=== PATIENT | male | born 1940 | race Caucasian/White ===

== ENCOUNTER 2017-09-10 11:08 | Outpatient (RCR) | payer OTHER ==
--- NOTE | 2017-08-31 02:08 | RADIOLOGY IMAGING REPORT ---
FACILITY: [facility] PATIENT NAME: Willie Marquez : 1940 MR: [id number] V: [id number] EXAM DATE: ORDERING PHYSICIAN: SERA JONES TECHNOLOGIST: Location: [facility] [place] Patient: Willie Marquez : 1940 Visit/Account:[id number] Date of Sevice: 08/30/2017 CT Simulation: Indication: Prostate cancer. Technique: CT simulation was performed for radiation therapy planning. Noncontrast images were obtain ed from the level of lower pole of the kidneys through the floor of the pelvis. Comparison: 04/27/2017 Findings: There are postoperative changes at the lower pole of the left kidney. There are no signs of hydronephrosis. There is chronic diverticulosis in the distal colon. There are no signs of diverticulitis. The prostate gland is unremarkable, as visualized. There are no signs of lymph node enlargement. A small diverticulum on the left side of the urinary bladder appears unchanged. There are chronic degenerative changes in the lumbar spine. No osteolytic or osteoblastic skeletal le sions are identified. Impression: See above. Report Dictated By: Robinson Kim MD at 08/30/2017 11:57 PM Report E-Signed By: Robinson Kim MD at 08/31/2017 12:07 AM WSN:[id number]
[~2017-09-10 11:08] MED LIST: ENAL-18 PO; NAPR220C12 PO; PHEN200T32 PO; TAMS0.4C70 PO; TROS20TA4 PO; VERA240C10 PO; [UNRECOGNIZED DRUG - CODE] PO
== END 2017-10-07 13:57 | disposition home or self-care (01) ==
LOC: RAON 11:08
PROVIDERS: ATTEND Radiology Radiation Oncology
DX: Z51.0 Encounter for antineoplastic radiation therapy (principal); C61 Malignant neoplasm of prostate; D30.02 Benign neoplasm of left kidney; J45.909 Unspecified asthma, uncomplicated; M10.9 Gout, unspecified; N28.89 Other specified disorders of kidney and ureter; Z79.82 Long term (current) use of aspirin; Z79.899 Other long term (current) drug therapy; Z87.891 Personal history of nicotine dependence
CPT/HCPCS: 77280; 77290; 77300; 77301; 77336; 77338; 77385; 81001

== ENCOUNTER 2017-10-18 12:53 | Outpatient (RCR) | payer OTHER ==
[2017-10-18] MEDS ORDERED: ENAL-18 PO (13:59)
[2017-10-18] MEDS ORDERED: FLUT15.88 (14:01)
[2017-10-18] MEDS ORDERED: LATA2.5D7 OP (14:02)
[2017-10-18] MEDS ORDERED: LEU30I IM ONLY (14:03)
[2017-10-18] MEDS ORDERED: MOM PO (14:30)
[2017-10-18] MEDS ORDERED: SENN-187 PO (14:30)
[2017-10-18] MEDS ORDERED: ALEN70TA43 PO (14:38)
[2017-10-18] MEDS ORDERED: CHOL10005 PO (14:39)
== END 2017-11-17 11:28 | disposition home or self-care (01) ==
LOC: RAON 12:53
PROVIDERS: ATTEND Radiology Radiation Oncology
DX: C61 Malignant neoplasm of prostate (principal); Z92.3 Personal history of irradiation; Z79.899 Other long term (current) drug therapy; Z87.891 Personal history of nicotine dependence
CPT/HCPCS: 99212

== ENCOUNTER → 2017-12-20 | Outpatient (CLI) | payer OTHER ==
[~2017-12-20] MED LIST changes: +ALEN70TA43 PO; +CHOL10005 PO; +FLUT15.88; +LATA2.5D7 OP; +LEU30I IM ONLY; +MOM PO; +SENN-187 PO
[2017-12-20 11:11] LABS: PLATELET COUNT, AUTOMATED 213 K/uL (150-450)
== END ==
LOC: LAB 10:55
PROVIDERS: ATTEND Nurse Practitioner Family
DX: C61 Malignant neoplasm of prostate (principal)
CPT/HCPCS: 36415; 82040; 82247; 82310; 82374; 82435; 82565; 82947; 84075; 84132; 84153; 84155; 84295; 84450; 84460; 84520; 85025

== ENCOUNTER 2017-12-21 10:51 | Outpatient (RCR) | payer OTHER ==
[2018-01-02] MEDS ORDERED: CYCL10TA29 PO (09:00)
[2018-01-02] MEDS ORDERED: HYDR-4309 PO (09:00)
== END 2018-01-07 09:27 | disposition home or self-care (01) ==
LOC: RAON 10:51
PROVIDERS: ATTEND Radiology Radiation Oncology
DX: Z85.46 Personal history of malignant neoplasm of prostate (principal); Z90.5 Acquired absence of kidney; Z87.898 Personal history of other specified conditions; Z79.899 Other long term (current) drug therapy; Z79.82 Long term (current) use of aspirin; Z87.891 Personal history of nicotine dependence
CPT/HCPCS: 99213

== ENCOUNTER 2018-01-02 08:09 | Emergency (ER) | payer OTHER ==
[2018-01-02 08:12] VITALS: BP 167/82
[2018-01-02] MEDS ORDERED: ORPHENADRINE 60MG/2ML INJ IM ONE (08:35)
[2018-01-02] MEDS ORDERED: DEXAMETHASONE 4 MG TAB PO ONE (08:35)
--- NOTE | 2018-01-02 08:41 | ER Report ---
History and Physical Time Seen By : 08:32 Hx. of Stated Complaint: fell down 3 steps. landed on his arm, elbow went into left ribs. hurts to breath or move fast HPI/ROS CHIEF COMPLAINT: Chest pain after a fall HISTORY OF PRESENT ILLNESS: 77-year-old male who fell yesterday reports to the ER today with moderate left lower lateral chest pain and tenderness. He states yesterday at about noon he was at home walking down the stairs, he remembers being approximately 2 or 3 stairs from the bottom when he fell. He does not know exactly why he fell, he does not believe he tripped. He denies any head injury or headache. He is uncertain about loss of consciousness but states he was definitely not passed out for more than a few seconds. He denies shortness of breath, extremity injury or abdominal pain. He denies feeling faint. REVIEW OF SYSTEMS: Constitutional: No weakness. Eyes: No visual changes or eye pain. ENT: No dental trauma. Respiratory: As above. Cardiac: No palpitations. Gastrointestinal: No abdominal pain, no vomiting. Musculoskeletal: As above. Skin: No lacerations. Neurological: No headache. Allergies: Coded Allergies: latex (Verified Allergy, Mild, 01/02/18) Home Meds Active Scripts Hydrocodone Bit/Acetaminophen (NORCO 5-325 TABLET) 1 Each Tablet, 1 EACH PO Q4H for PAIN, #14 TAB Prov:SHASHI HDZ MD 01/02/18 Cyclobenzaprine Hcl (CYCLOBENZAPRINE HCL) 10 Mg Tablet, 10 MG PO Q8H Y for MUSCLE SPASMS, #20 TAB 0 Refills Prov:SHASHI HDZ MD 01/02/18 Reported Medications Cholecalciferol (Vitamin D3) (VITAMIN D3) 1,000 Unit Tablet, 1000 UNIT PO DAILY , TAB 10/18/17 Alendronate Sodium (FOSAMAX) 70 Mg Tablet, 70 MG PO QWK, TAB 10/18/17 Sennosides/Docusate Sodium (STOOL SOFTENER TABLET) 1 Each Tablet, 1 EACH PO PRN Y for CONSTIPATION 10/18/17 Magnesium Hydroxide (MILK OF MAGNESIA) 400 Mg/5 Ml Oral.susp, 400 MG PO PRN Y for CONSTIPATION, BOTTLE 10/18/17 Leuprolide Acetate (LUPRON DEPOT) 30 Mg/Kit Kit, 30 MG IM ONLY, KIT 10/18/17 Latanoprost (LATANOPROST) 2.5 Ml Drops, OP DAILY 10/18/17 Fluticasone Propionate (Fluticasone Propionate) 50 Mcg/Actuation [place].susp, NA DAILY 10/18/17 Enalapril Maleate (ENALAPRIL MALEATE) 10 Mg Tablet, 10 MG PO QDAY 10/18/17 Naproxen Sodium (ALEVE) 220 Mg Capsule, 220 MG PO PRN, CAPSULE 08/17/17 Tamsulosin Hcl (TAMSULOSIN HCL) 0.4 Mg Cap.er.24h, 2 TAB PO AB, CAP 08/06/17 Aspirin (ALVERTO ADVANCED) 500 Mg Tablet, 325 MG PO QDAY 08/06/17 Verapamil Hcl (VERAPAMIL ER) 240 Mg Cap24h.pel, 240 MG PO QDAY 08/06/17 Past Medical/Surgical History See nurse's note Hx Smoking: No Hx Alcohol Use: Yes (2 x week) Constitutional Vital Sign - Last 24 Hours 01/02/18 08:12 Temp 97.7 Pulse 72 Resp 16 B/P (MAP) 167/82 Pulse Ox 96 O2 Delivery Room Air Physical Exam General Appearance: The patient is alert, has no immediate need for airway protection and no signs of toxicity. Eyes: Pupils equal and round no pallor or injection. ENT, Mouth: Mucous membranes are moist. Respiratory: Severe tenderness to the lower left lateral ribs, no paradoxical motion, no ecchymosis, no subcutaneous emphysema, lungs are clear to auscultation. Cardiovascular: Regular rate and rhythm. Gastrointestinal: Abdomen is soft and non tender, no masses. 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 Skin: Warm and dry, no rashes. Musculoskeletal: Neck is supple non tender. Extremities are nontender, nonswollen and have full range of motion. DIFFERENTIAL DIAGNOSIS: After history and physical exam differential diagnosis was considered for syncope including but not limited to vasovagal syncope, arrhythmia, dehydration, and blood loss and differential diagnosis was considered for traumatic chest pain including spleen injury, rib fracture, pneumothorax, contusion. Medical Decision Making Data Points Result Diagram: 01/02/18 0834 01/02/18 0834 Laboratory Hematology Test 01/02/18 08:34 Red Blood Count 4.53 M/uL (4.00-5.60) Mean Corpuscular Volume 89.7 fL (80.0-96.0) Mean Corpuscular Hemoglobin 30.8 pg (26.0-33.0) Mean Corpuscular Hemoglobin Concent 34.4 g/dL (32.0-36.0) Red Cell Distribution Width 13.6 % (11.5-14.5) Mean Platelet Volume 8.0 fL (7.2-11.1) Neutrophils (%) (Auto) 65.3 % (39.4-72.5) Lymphocytes (%) (Auto) 21.0 % (17.6-49.6) Monocytes (%) (Auto) 10.1 % (4.1-12.4) Eosinophils (%) (Auto) 3.3 % (0.4-6.7) Basophils (%) (Auto) 0.3 % (0.3-1.4) Nucleated RBC Relative Count (auto) 0.0 /100WBC Neutrophils # (Auto) 3.7 K/uL (2.0-7.4) Lymphocytes # (Auto) 1.2 K/uL (1.3-3.6) Monocytes # (Auto) 0.6 K/uL (0.3-1.0) Eosinophils # (Auto) 0.2 K/uL (0.0-0.5) Basophils # (Auto) 0.0 K/uL (0.0-0.1) Nucleated RBC Absolute Count (auto) 0.00 K/uL Sodium Level 143 mmol/L (137-145) Potassium Level 4.6 mmol/L (3.5-5.0) Chloride Level 106 mmol/L (98-107) Carbon Dioxide Level 26 mmol/L (22-30) Blood Urea Nitrogen 19 mg/dl (9-21) Creatinine 1.30 mg/dl (0.66-1.25) Glomerular Filtration Rate Calc 53.7 Random Glucose 98 mg/dl (75-110) Calcium Level 9.5 mg/dl (8.4-10.2) Troponin I < 0.012 ng/ml Chemistry Test 01/02/18 08:34 White Blood Count 5.7 k/uL (4.5-11.0) Red Blood Count 4.53 M/uL (4.00-5.60) Hemoglobin 14.0 g/dL (14.0-18.0) Hematocrit 40.6 % (42.0-52.0) Mean Corpuscular Volume 89.7 fL (80.0-96.0) Mean Corpuscular Hemoglobin 30.8 pg (26.0-33.0) Mean Corpuscular Hemoglobin Concent 34.4 g/dL (32.0-36.0) Red Cell Distribution Width 13.6 % (11.5-14.5) Platelet Count 161 K/uL (150-450) Mean Platelet Volume 8.0 fL (7.2-11.1) Neutrophils (%) (Auto) 65.3 % (39.4-72.5) Lymphocytes (%) (Auto) 21.0 % (17.6-49.6) Monocytes (%) (Auto) 10.1 % (4.1-12.4) Eosinophils (%) (Auto) 3.3 % (0.4-6.7) Basophils (%) (Auto) 0.3 % (0.3-1.4) Nucleated RBC Relative Count (auto) 0.0 /100WBC Neutrophils # (Auto) 3.7 K/uL (2.0-7.4) Lymphocytes # (Auto) 1.2 K/uL (1.3-3.6) Monocytes # (Auto) 0.6 K/uL (0.3-1.0) Eosinophils # (Auto) 0.2 K/uL (0.0-0.5) Basophils # (Auto) 0.0 K/uL (0.0-0.1) Nucleated RBC Absolute Count (auto) 0.00 K/uL Glomerular Filtration Rate Calc 53.7 Calcium Level 9.5 mg/dl (8.4-10.2) Troponin I < 0.012 ng/ml EKG/Imaging EKG Interpretation 01/02/2018 8:42:31 am 12 lead EKG: Normal EKG Rhythm: normal sinus rhythm Noti: normal QRS: normal ST segments: normal Rate 68 Imaging Chest x-ray shows no acute process, no acute injury. ED Course/Re-evaluation ED Course The patient's exam is consistent with a minor nondisplaced left lower rib fracture. Chest x-ray shows no pneumothorax, no rib fractures clearly identified , but nondisplaced fracture may remain occult. Somewhat concerning that the reason for the patient's fall is unclear. This may have been a syncopal episode. Evaluation including EKG, CBC and metabolic panel and troponin is normal. Given Norflex in the ER with some improvement of his pain. He was given opiates and muscle relaxers for pain control and instructed to follow-up with his primary care doctor. He states he has an appointment with the [facility] next week. Decision to Disposition Date: Jan 02, 2018 Decision to Disposition Time: 09:25 Depart Departure Latest Vital Signs Vital Signs Date Time Temp Pulse Resp B/P (MAP) Pulse Ox O2 Delivery O2 Flow Rate FiO2 01/02/18 08:12 97.7 72 16 167/82 96 Room Air Impression: Primary Impression: Rib fracture Condition: Improved Disposition: HOME OR SELF-CARE Referrals: MAYELA GARCIA APN (PCP) New Scripts Hydrocodone Bit/Acetaminophen (NORCO 5-325 TABLET) 1 Each Tablet 1 EACH PO Q4H for PAIN, #14 TAB Prov: SHASHI HDZ MD 01/02/18 Cyclobenzaprine Hcl (CYCLOBENZAPRINE HCL) 10 Mg Tablet 10 MG PO Q8H Y for MUSCLE SPASMS, #20 TAB 0 Refills Prov: SHASHI HDZ MD 01/02/18 Problem Qualifiers Primary Impression: Rib fracture Encounter type: initial encounter Rib fracture type: single rib Fracture type: closed Laterality: left Qualified Codes: S22.32XA - Fracture of one rib, left side, initial encounter for closed fracture SHASHI HDZ MD Jan 02, 2018 08:41
--- NOTE | 2018-01-02 08:45 | EKG ---
FACILITY: [facility] PATIENT NAME: AVINASH HERNANDEZ : [id number] MR: [id number] V: [id number] EXAM DATE: ORDERING PHYSICIAN: SHASHI HDZ TECHNOLOGIST: CINDY Lloyd Reason : Blood Pressure : / mmHG Vent. Rate : 068 BPM Atrial Rate : 068 BPM P-R Int : 120 ms QRS Dur : 074 ms QT Int : 396 ms P-R-T Axes : 032 039 019 degrees QTc Int : 421 ms Normal sinus rhythm with sinus arrhythmia Normal ECG When compared with ECG of 06-AUG-2017 14:30, No significant change was found Confirmed by PAT CHAMBERS ([id number]) on 01/02/2018 7:51:33 PM Referred By: Confirmed By:PAT CHAMBERS
[2018-01-02 08:46] LABS: PLATELET COUNT, AUTOMATED 161 K/uL (150-450)
[2018-01-02] MEDS ORDERED: CYCL10TA29 PO (09:00)
[2018-01-02] MEDS ORDERED: HYDR-4309 PO (09:00)
--- NOTE | 2018-01-02 09:36 | RADIOLOGY IMAGING REPORT ---
FACILITY: [facility] PATIENT NAME: Willie Marquez : 1940 MR: [id number] V: [id number] EXAM DATE: ORDERING PHYSICIAN: SHASHI HDZ TECHNOLOGIST: Location: [facility] Patient: Willie Marquez : 1940 Visit/Account:[id number] Date of Sevice: 01/02/2018 CHEST PA AND LAT COMPARISON: 04/27/2017 HISTORY: chest pain FINDINGS: CARDIAC/VASC: No cardiac silhouette abnormality or cardiomegaly. Unremarkable pulmonary vasculatu re. MEDIASTINUM: No visible mass or adenopathy. LUNGS/PLEURA: No pneumothorax. No significant pulmonary parenchymal abnormalities. No effusion or p leural thickening. BONES: No fracture or visible bony lesion. Mild thoracic spine degenerative changes. OTHER:Negative. IMPRESSION: No acute cardiopulmonary process. Report Dictated By: Mario Smith at 01/02/2018 9:30 AM Report E-Signed By: Mario Smith at 01/02/2018 9:30 AM WSN:[id number]
== END 2018-01-02 09:30 | disposition home or self-care (01) ==
LOC: ER 08:33
DX: S22.32XA Fracture of one rib, left side, initial encounter for closed fracture (principal); W10.9XXA Fall (on) (from) unspecified stairs and steps, initial encounter
CPT/HCPCS: 36415; 71046; 84484; 85025; 93005; 96372; 99284; J2360; J8540; 82310; 82374; 82435; 82565; 82947; 84132; 84295; 84520

== ENCOUNTER → 2018-01-04 | Outpatient (CLI) | payer OTHER ==
[~2018-01-04] MED LIST changes: +CYCL10TA29 PO; +HYDR-4309 PO
== END ==
LOC: LAB 09:07
PROVIDERS: ATTEND Urology
DX: C61 Malignant neoplasm of prostate (principal)
CPT/HCPCS: 36415; 84403

== ENCOUNTER → 2018-02-22 | Outpatient (CLI) | payer OTHER ==
--- NOTE | 2018-02-22 22:42 | RADIOLOGY IMAGING REPORT ---
FACILITY: [facility] PATIENT NAME: Willie Marquez : 1940 MR: [id number] V: [id number] EXAM DATE: ORDERING PHYSICIAN: SHELLEY CROWDER TECHNOLOGIST: Location: [facility] Patient: Willie Marquez : 1940 Visit/Account:[id number] Date of Sevice: 02/22/2018 CAROTID HISTORY: Prior stroke in 1990. Left endarterectomy in 1995. Balance problems. Evaluate carotids. COMPARISON: MR angiogram neck 08/06/2017. No prior carotid ultrasound. TECHNIQUE: Ultrasound images were obtained of the carotid and vertebral arteries bilaterally. Graysc gilberto and color flow and doppler images were obtained. Stenosis percent is determined from velocity cri teria extrapolated from diameter data as defined by the Society of Radiologists in Ultrasound Consens us Conference Radiology 2003; 229;340-346. FINDINGS: RIGHT: There is antegrade flow within the right vertebral artery. There is no plaque of the right car otid artery. Peak systolic velocity CCA: 99 cm/s Peak systolic velocity ECA: 66 cm/s Peak systolic velocity carotid bulb: 56 cm/s Peak systolic velocity proximal ICA: 58 cm/s Peak systolic velocity mid ICA: 71 cm/s Peak systolic velocity distal ICA: 69 cm/s ICA/CCA ratio is 0.7. LEFT: There is antegrade flow within the left vertebral artery. The vessel is small, likely developme ntally. There is mild calcified plaque at the left carotid bifurcation and of the proximal internal c arotid artery. Peak systolic velocity CCA: 102 cm/s Peak systolic velocity ECA: 60 cm/s Peak systolic velocity carotid bulb: 71 cm/s Peak systolic velocity proximal ICA: 63 cm/s Peak systolic velocity mid ICA: 97 cm/s (this segment is tortuous) Peak systolic velocity distal ICA: 124 cm/s (this segment is tortuous) ICA/CCA ratio is 1.2. IMPRESSION: 1. There is antegrade flow in the bilateral vertebral arteries. 2. Findings are consistent with less than 50 percent stenosis of the left internal carotid artery. Margarito rderline elevated systolic velocity in the left internal carotid artery is due to tortuosity of the v essel. 3. Normal right internal carotid artery without stenosis. Report Dictated By: Nay Arias at 02/22/2018 10:32 PM Report E-Signed By: Nay Arias at 02/22/2018 10:38 PM WSN:[id number]
== END ==
LOC: US 14:40
PROVIDERS: ATTEND Internal Medicine Cardiovascular Disease
DX: I35.1 Nonrheumatic aortic (valve) insufficiency (principal); I51.7 Cardiomegaly; I07.1 Rheumatic tricuspid insufficiency; I34.0 Nonrheumatic mitral (valve) insufficiency
CPT/HCPCS: 93325; 93880; C8929; Q9957

== ENCOUNTER 2018-03-30 01:26 | Emergency (ER) | payer OTHER ==
--- NOTE | 2018-03-30 01:38 | ER Report ---
History and Physical Time Seen By MD: 01:38 HPI/ROS CHIEF COMPLAINT: Right lower quadrant abdominal pain HISTORY OF PRESENT ILLNESS: 77-year-old male ambulatory to the ER complaining of increasing right lower quadrant abdominal pain. The patient started yesterday. Tonight. It's unbearable. He is unable to sleep. He's had no dysuria, hematuria or frequency. Patient denies diarrhea or constipation. Patient notes nausea but no vomiting. Patient notes no fever or chills. Patient status post cholecystectomy. Patient notes some radiation of the pain to his back in the right lower flank. Patient has a history of prostate cancer. REVIEW OF SYSTEMS: Respiratory: No cough, no dyspnea. Cardiovascular: No chest pain, no palpitations. Gastrointestinal: As above Musculoskeletal: No back pain. Allergies: Coded Allergies: latex (Verified Allergy, Mild, 03/30/18) Home Meds Active Scripts Ondansetron (ZOFRAN ODT) 4 Mg Tab.rapdis, 4 MG PO every 6 hours Y for NAUSEA/ VOMITING, #10 TAB TAKE 1 TABLET BY MOUTH EVERY 12 HOURS Prov:RAKAN WISE DO 03/30/18 Tramadol Hcl (TRAMADOL HCL) 50 Mg Tablet, 1 TAB PO Q6H Y for PAIN, #12 MG TAKE ONE TO TWO TABLETS BY MOUTH EVERY FOUR TO SIX HOURS NEEDED Prov:RAKAN WISE DO 03/30/18 Hydrocodone Bit/Acetaminophen (NORCO 5-325 TABLET) 1 Each Tablet, 1 EACH PO Q4H for PAIN, #14 TAB Prov:SHASHI HDZ MD 01/02/18 Cyclobenzaprine Hcl (CYCLOBENZAPRINE HCL) 10 Mg Tablet, 10 MG PO Q8H Y for MUSCLE SPASMS, #20 TAB 0 Refills Prov:SHASHI HDZ MD 01/02/18 Reported Medications Cholecalciferol (Vitamin D3) (VITAMIN D3) 1,000 Unit Tablet, 1000 UNIT PO DAILY , TAB 10/18/17 Alendronate Sodium (FOSAMAX) 70 Mg Tablet, 70 MG PO QWK, TAB 10/18/17 Sennosides/Docusate Sodium (STOOL SOFTENER TABLET) 1 Each Tablet, 1 EACH PO PRN Y for CONSTIPATION 10/18/17 Magnesium Hydroxide (MILK OF MAGNESIA) 400 Mg/5 Ml Oral.susp, 400 MG PO PRN Y for CONSTIPATION, BOTTLE 10/18/17 Leuprolide Acetate (LUPRON DEPOT) 30 Mg/Kit Kit, 30 MG IM ONLY, KIT 10/18/17 Latanoprost (LATANOPROST) 2.5 Ml Drops, OP DAILY 10/18/17 Fluticasone Propionate (Fluticasone Propionate) 50 Mcg/Actuation [place].susp, NA DAILY 10/18/17 Enalapril Maleate (ENALAPRIL MALEATE) 10 Mg Tablet, 10 MG PO QDAY 10/18/17 Naproxen Sodium (ALEVE) 220 Mg Capsule, 220 MG PO PRN, CAPSULE 08/17/17 Tamsulosin Hcl (TAMSULOSIN HCL) 0.4 Mg Cap.er.24h, 2 TAB PO AB, CAP 08/06/17 Aspirin (ALVERTO ADVANCED) 500 Mg Tablet, 325 MG PO QDAY 08/06/17 Verapamil Hcl (VERAPAMIL ER) 240 Mg Cap24h.pel, 240 MG PO QDAY 08/06/17 Past Medical/Surgical History pmhx: prostate ca, kidney tumor, tia, cva Pshx: tumor resection Reviewed Nurses Notes: Yes Old Medical Records Reviewed: Yes Hx Smoking: No Hx Alcohol Use: Yes (2 x week) Constitutional Vital Sign - Last 24 Hours 03/30/18 03/30/18 03/30/18 03/30/18 01:39 01:42 01:45 01:56 Temp 97.7 Pulse 69 71 Resp 16 B/P (MAP) 150/75 150/75 (100) 152/86 (108) Pulse Ox 94 94 O2 Delivery Room Air 03/30/18 03/30/18 03/30/18 03/30/18 02:00 02:11 02:15 02:26 Pulse 72 ??? B/P (MAP) 141/79 (99) 144/83 (103) Pulse Ox 95 96 03/30/18 03/30/18 03/30/18 03/30/18 02:30 02:41 02:45 02:52 Pulse ??? B/P (MAP) 134/96 (109) ???/??? (1665) 146/75 (98) 03/30/18 03/30/18 03/30/18 03/30/18 02:56 03:00 03:11 03:16 Pulse 62 64 67 B/P (MAP) 155/78 (103) Pulse Ox 95 90 90 03/30/18 03/30/18 03/30/18 03/30/18 03:30 03:31 03:45 03:46 Pulse 64 64 B/P (MAP) 145/74 (97) 149/73 (98) Pulse Ox 92 92 03/30/18 03/30/18 03/30/18 03/30/18 04:00 04:01 04:15 04:16 Pulse 70 ??? B/P (MAP) 138/68 (91) 143/94 (110) Pulse Ox 92 Physical Exam General Appearance: patient is alert, has no immediate need for airway protection and no current signs of toxicity. Vital signs stable, afebrile, pulse ox normal Eyes: Pupils equal and round no injection. Respiratory: Chest is non tender, lungs are clear to auscultation. Cardiac: regular rate and rhythm Gastrointestinal: Abdomen is soft, moderate right lower quadrant tenderness with guarding and rebound, no masses, bowel sounds normal. Musculoskeletal: Neck: Neck is supple and non tender. No lymphadenopathy Extremities have full range of motion and are non tender. Skin: No rashes or lesions. DIFFERENTIAL DIAGNOSIS: After history and physical exam differential diagnosis was considered for abdominal pain including but not limited to appendicitis, cholecystitis, gastritis and urinary tract infection. Medical Decision Making Data Points Result Diagram: 03/30/18 0213 03/30/18 0213 Laboratory Hematology Test 03/30/18 01:47 03/30/18 02:13 Urine Color Yellow Urine Clarity Clear Urine pH 6.0 pH (4.8-9.5) Urine Specific [place] 1.020 Urine Protein Negative mg/dL (NEGATIVE) Urine Glucose (UA) Negative mg/dL (NEGATIVE) Urine Ketones Negative mg/dL (NEGATIVE) Urine Blood Negative (NEGATIVE) Urine Nitrite Negative (NEGATIVE) Urine Bilirubin Negative (NEGATIVE) Urine Urobilinogen 2.0 mg/dL (0.2-1.9) Urine Leukocyte Esterase Negative (NEGATIVE) Urine RBC <1 /HPF (0-2/HPF) Urine WBC <1 /HPF (0-5/HPF) Urine Squamous Epithelial Cells None /LPF (</=FEW) Urine Bacteria Negative /HPF (NONE-FEW) Urine Mucus None /HPF (NONE-FEW) Red Blood Count 4.57 M/uL (4.00-5.60) Mean Corpuscular Volume 88.4 fL (80.0-96.0) Mean Corpuscular Hemoglobin 30.8 pg (26.0-33.0) Mean Corpuscular Hemoglobin Concent 34.8 g/dL (32.0-36.0) Red Cell Distribution Width 13.6 % (11.5-14.5) Mean Platelet Volume 8.1 fL (7.2-11.1) Neutrophils (%) (Auto) 55.8 % (39.4-72.5) Lymphocytes (%) (Auto) 30.0 % (17.6-49.6) Monocytes (%) (Auto) 9.9 % (4.1-12.4) Eosinophils (%) (Auto) 3.3 % (0.4-6.7) Basophils (%) (Auto) 1.0 % (0.3-1.4) Nucleated RBC Relative Count (auto) 0.0 /100WBC Neutrophils # (Auto) 3.2 K/uL (2.0-7.4) Lymphocytes # (Auto) 1.7 K/uL (1.3-3.6) Monocytes # (Auto) 0.6 K/uL (0.3-1.0) Eosinophils # (Auto) 0.2 K/uL (0.0-0.5) Basophils # (Auto) 0.1 K/uL (0.0-0.1) Nucleated RBC Absolute Count (auto) 0.00 K/uL Prothrombin Time 13.1 seconds (12.0-14.4) Prothromb Time International Ratio 0.99 Activated Partial Thromboplast Time 27 seconds (23-35) Sodium Level 139 mmol/L (137-145) Potassium Level 4.3 mmol/L (3.5-5.0) Chloride Level 104 mmol/L (98-107) Carbon Dioxide Level 26 mmol/L (22-30) Blood Urea Nitrogen 19 mg/dl (9-21) Creatinine 1.20 mg/dl (0.66-1.25) Glomerular Filtration Rate Calc 58.9 Random Glucose 101 mg/dl (75-110) Calcium Level 9.1 mg/dl (8.4-10.2) Total Bilirubin 0.3 mg/dl (0.2-1.3) Aspartate Amino Transf (AST/SGOT) 23 U/L (0-35) Alanine Aminotransferase (ALT/SGPT) 29 U/L (0-56) Alkaline Phosphatase 68 U/L (0-126) Total Protein 6.5 g/dl (6.3-8.2) Albumin 3.8 g/dl (3.5-5.0) Amylase Level 71 U/L (0-110) Lipase 194 U/L (23-300) Chemistry Test 03/30/18 01:47 03/30/18 02:13 Urine Color Yellow Urine Clarity Clear Urine pH 6.0 pH (4.8-9.5) Urine Specific [place] 1.020 Urine Protein Negative mg/dL (NEGATIVE) Urine Glucose (UA) Negative mg/dL (NEGATIVE) Urine Ketones Negative mg/dL (NEGATIVE) Urine Blood Negative (NEGATIVE) Urine Nitrite Negative (NEGATIVE) Urine Bilirubin Negative (NEGATIVE) Urine Urobilinogen 2.0 mg/dL (0.2-1.9) Urine Leukocyte Esterase Negative (NEGATIVE) Urine RBC <1 /HPF (0-2/HPF) Urine WBC <1 /HPF (0-5/HPF) Urine Squamous Epithelial Cells None /LPF (</=FEW) Urine Bacteria Negative /HPF (NONE-FEW) Urine Mucus None /HPF (NONE-FEW) White Blood Count 5.7 k/uL (4.5-11.0) Red Blood Count 4.57 M/uL (4.00-5.60) Hemoglobin 14.1 g/dL (14.0-18.0) Hematocrit 40.4 % (42.0-52.0) Mean Corpuscular Volume 88.4 fL (80.0-96.0) Mean Corpuscular Hemoglobin 30.8 pg (26.0-33.0) Mean Corpuscular Hemoglobin Concent 34.8 g/dL (32.0-36.0) Red Cell Distribution Width 13.6 % (11.5-14.5) Platelet Count 190 K/uL (150-450) Mean Platelet Volume 8.1 fL (7.2-11.1) Neutrophils (%) (Auto) 55.8 % (39.4-72.5) Lymphocytes (%) (Auto) 30.0 % (17.6-49.6) Monocytes (%) (Auto) 9.9 % (4.1-12.4) Eosinophils (%) (Auto) 3.3 % (0.4-6.7) Basophils (%) (Auto) 1.0 % (0.3-1.4) Nucleated RBC Relative Count (auto) 0.0 /100WBC Neutrophils # (Auto) 3.2 K/uL (2.0-7.4) Lymphocytes # (Auto) 1.7 K/uL (1.3-3.6) Monocytes # (Auto) 0.6 K/uL (0.3-1.0) Eosinophils # (Auto) 0.2 K/uL (0.0-0.5) Basophils # (Auto) 0.1 K/uL (0.0-0.1) Nucleated RBC Absolute Count (auto) 0.00 K/uL Prothrombin Time 13.1 seconds (12.0-14.4) Prothromb Time International Ratio 0.99 Activated Partial Thromboplast Time 27 seconds (23-35) Glomerular Filtration Rate Calc 58.9 Calcium Level 9.1 mg/dl (8.4-10.2) Total Bilirubin 0.3 mg/dl (0.2-1.3) Aspartate Amino Transf (AST/SGOT) 23 U/L (0-35) Alanine Aminotransferase (ALT/SGPT) 29 U/L (0-56) Alkaline Phosphatase 68 U/L (0-126) Total Protein 6.5 g/dl (6.3-8.2) Albumin 3.8 g/dl (3.5-5.0) Amylase Level 71 U/L (0-110) Lipase 194 U/L (23-300) Coagulation Test 03/30/18 02:13 Prothrombin Time 13.1 seconds Prothromb Time International Ratio 0.99 Activated Partial Thromboplast Time 27 seconds Urinalysis Test 03/30/18 01:47 Urine Color Yellow Urine Clarity Clear Urine pH 6.0 pH (4.8-9.5) Urine Specific [place] 1.020 Urine Protein Negative mg/dL (NEGATIVE) Urine Glucose (UA) Negative mg/dL (NEGATIVE) Urine Ketones Negative mg/dL (NEGATIVE) Urine Blood Negative (NEGATIVE) Urine Nitrite Negative (NEGATIVE) Urine Bilirubin Negative (NEGATIVE) Urine Urobilinogen 2.0 mg/dL (0.2-1.9) Urine Leukocyte Esterase Negative (NEGATIVE) Urine RBC <1 /HPF (0-2/HPF) Urine WBC <1 /HPF (0-5/HPF) Urine Squamous Epithelial Cells None /LPF (</=FEW) Urine Bacteria Negative /HPF (NONE-FEW) Urine Mucus None /HPF (NONE-FEW) EKG/Imaging Imaging Results: CT scan of the abdomen and pelvis with IV contrast was obtained. The results of the study are no acute appendicitis, see report. The study was read by the radiologist. I viewed the images myself on the PACS system. ED Course/Re-evaluation Clinical Indication for ER IV: Hydration, IV Access ED Course Patient was admitted to an examination room. H&P was done. The differential diagnoses was considered. On clinical examination. Patient has right flank and right lower abdominal pain. He notes the pain is getting worse over the last 24 hours. He is unable to sleep tonight. The pain is too intense. Urinalysis is performed which is unremarkable for hematuria or infection. Patient on examination has a significantly surgical belly with right lower quadrant tenderness. A CT scan with contrast is ordered. Patient's treated with IV fluid hydration, Zofran and fentanyl. Patient's CT report was negative for acute appendicitis. There was notable constipation and esophageal wall thickening, questionable significance. Patient's pain resolved. His results were discussed with him. He is discharged with a conservative treatment plan health clear liquid diet for 24 hours. Patient's advised MiraLAX twice daily for 2 days. He is given prescriptions for tramadol for pain and Zofran for nausea control. Decision to Disposition Date: Mar 30, 2018 Decision to Disposition Time: 02:37 Depart Departure Latest Vital Signs Vital Signs Date Time Temp Pulse Resp B/P (MAP) Pulse Ox O2 Delivery O2 Flow Rate FiO2 03/30/18 04:16 ??? 03/30/18 04:15 143/94 (110) 03/30/18 04:01 92 03/30/18 01:39 97.7 16 Room Air Impression: Primary Impression: Abdominal pain Condition: Improved Disposition: HOME OR SELF-CARE Referrals: MAYELA GARCIA APN (PCP) New Scripts Ondansetron (ZOFRAN ODT) 4 Mg Tab.rapdis 4 MG PO every 6 hours Y for NAUSEA/VOMITING, #10 TAB TAKE 1 TABLET BY MOUTH EVERY 12 HOURS Prov: RAKAN WISE DO 03/30/18 Tramadol Hcl (TRAMADOL HCL) 50 Mg Tablet 1 TAB PO Q6H Y for PAIN, #12 MG TAKE ONE TO TWO TABLETS BY MOUTH EVERY FOUR TO SIX HOURS NEEDED Prov: RAKAN WISE DO 03/30/18 Patient Instructions: Abdominal Pain (ED), Clear Liquid Diet (ED) Additional Instructions: Follow clear liquid diet for 24-48 hours, then advance to the brat diet, bananas , rice, applesauce and toast Take MiraLAX 1 capful twice daily for 2 days Follow-up with your primary care if unimproved in 3-5 days Problem Qualifiers Primary Impression: Abdominal pain Abdominal location: right lower quadrant Qualified Codes: R10.31 - Right lower quadrant pain RAKAN WISE DO Mar 30, 2018 01:38
[2018-03-30] MEDS ORDERED: IBUPROFEN 600 MG TAB PO ONE (01:55)
[2018-03-30] MEDS ORDERED: ACETAMINOPHEN 325 MG TAB PO ONE (01:55)
[2018-03-30] MEDS ORDERED: NS(*) 0.9% 1000 ML BAG 1,000 ML IV ONE (02:01)
[2018-03-30] MEDS ORDERED: ONDANSETRON 4 MG/2 ML VIAL IVP ONE (02:05)
[2018-03-30] MEDS ORDERED: fentaNYL CITR 100 MCG/2 ML AMP IVP ONE (02:05)
[2018-03-30] MEDS ORDERED: IOPAMIDOL 76% 75 ML INFUS BTL 75 ML ONE (02:16)
[2018-03-30 02:20] LABS: PLATELET COUNT, AUTOMATED 190 K/uL (150-450)
[2018-03-30 02:28] LABS: INR 0.99
[2018-03-30 04:15] VITALS: BP 143/94
[2018-03-30] MEDS ORDERED: TRAM-420 PO (04:23)
[2018-03-30] MEDS ORDERED: ONDA4TAB PO (04:23)
[2018-03-30] MEDS ORDERED: ONDANSETRON 4 MG ODT TH SL ONE (04:50)
[2018-03-30] MEDS ORDERED: traMADol 50 MG TAB TH 2 TAB/BOTTLE PO ONE (04:50)
== END 2018-03-30 04:55 | disposition home or self-care (01) ==
LOC: ER 01:53
DX: R10.31 Right lower quadrant pain (principal); K59.00 Constipation, unspecified
CPT/HCPCS: 74177; 81001; 82150; 83690; 85025; 85610; 85730; 96361; 96374; 96375; 99284; J2405; J3010; J7030; Q9967; 82040; 82247; 82310; 82374; 82435; 82565; 82947; 84075; 84132; 84155; 84295; 84450; 84460; 84520

== ENCOUNTER 2018-04-11 03:29 | Emergency (ER) | payer OTHER ==
[~2018-04-11 03:29] MED LIST changes: +ONDA4TAB PO; +TRAM-420 PO
[2018-04-11] MEDS ORDERED: APIX5TAB PO (03:45)
--- NOTE | 2018-04-11 03:47 | ER Report ---
History and Physical Time Seen By MD: 03:46 Hx. of Stated Complaint: BACK PAIN X TWO WEEKS. WAS HERE 2 WEEKS AGO FOR IT. IT'S GOTTEN WORSE. CAN'T SLEEP HPI/ROS CHIEF COMPLAINT: abdominal pain HISTORY OF PRESENT ILLNESS: This is a 77 year old male. He is having right sided abdominal pain. Has been present for weeks now. Constant pain, now extending into the right lower back as well. Nothing really changes it. Tried taking Aleve, with only slight improvement. Had been seen in the ER a couple of weeks ago. Labs and CT scan were negative. Thought that his symptoms could have been from constipation. He has been having normal bowels since then. Denies blood in the stool or diarrhea. He is urinating more frequently, but no dysuria. Urine is darker sometimes. No fevers or chills. No difficulty breathing or feeling short of breath. He is being evaluated for some other heart problems by Dr. Rubio and currently wearing a heart monitor. He is supposed to be on Eliquis, but has not started it yet. Has had several episodes of syncope from September to March that they are evaluating. Allergies: Coded Allergies: latex (Verified Allergy, Mild, 03/30/18) atorvastatin (Verified Adverse Reaction, Intermediate, 04/11/18) metoprolol (Verified Adverse Reaction, Intermediate, 04/11/18) simvastatin (Verified Adverse Reaction, Intermediate, 04/11/18) Home Meds Active Scripts Gabapentin (GABAPENTIN) 300 Mg Capsule, 300 MG PO TID, #90 CAPSULE 0 Refills Prov:DIOMEDES JOSEPH MD 04/11/18 Valacyclovir Hcl (VALACYCLOVIR) 1,000 Mg Tablet, 1000 MG PO TID, #21 TAB 0 Refills Prov:DIOMEDES JOSEPH MD 04/11/18 Prednisone (PREDNISONE) 20 Mg Tablet, 60 MG PO QDAY, #12 TAB 0 Refills Prov:DIOMEDES JOSEPH MD 04/11/18 Hydrocodone Bit/Acetaminophen (HYDROCODON-ACETAMINOPHEN 5-325) 1 Each Tablet, 1 EACH PO Q4H Y for PAIN, #20 TAB 0 Refills Prov:DIOMEDES JOSEPH MD 04/11/18 Ondansetron (ZOFRAN ODT) 4 Mg Tab.rapdis, 4 MG PO every 6 hours Y for NAUSEA/ VOMITING, #10 TAB TAKE 1 TABLET BY MOUTH EVERY 12 HOURS Prov:RAKAN WISE DO 03/30/18 Tramadol Hcl (TRAMADOL HCL) 50 Mg Tablet, 1 TAB PO Q6H Y for PAIN, #12 MG TAKE ONE TO TWO TABLETS BY MOUTH EVERY FOUR TO SIX HOURS NEEDED Prov:RAKAN WISE DO 03/30/18 Hydrocodone Bit/Acetaminophen (NORCO 5-325 TABLET) 1 Each Tablet, 1 EACH PO Q4H for PAIN, #14 TAB Prov:SHASHI HDZ MD 01/02/18 Cyclobenzaprine Hcl (CYCLOBENZAPRINE HCL) 10 Mg Tablet, 10 MG PO Q8H Y for MUSCLE SPASMS, #20 TAB 0 Refills Prov:SHASHI HDZ MD 01/02/18 Reported Medications Apixaban (ELIQUIS) 5 Mg Tablet, 5 MG PO 04/11/18 Cholecalciferol (Vitamin D3) (VITAMIN D3) 1,000 Unit Tablet, 1000 UNIT PO DAILY , TAB 10/18/17 Alendronate Sodium (FOSAMAX) 70 Mg Tablet, 70 MG PO QWK, TAB 10/18/17 Sennosides/Docusate Sodium (STOOL SOFTENER TABLET) 1 Each Tablet, 1 EACH PO PRN Y for CONSTIPATION 10/18/17 Magnesium Hydroxide (MILK OF MAGNESIA) 400 Mg/5 Ml Oral.susp, 400 MG PO PRN Y for CONSTIPATION, BOTTLE 10/18/17 Leuprolide Acetate (LUPRON DEPOT) 30 Mg/Kit Kit, 30 MG IM ONLY, KIT 10/18/17 Latanoprost (LATANOPROST) 2.5 Ml Drops, OP DAILY 10/18/17 Fluticasone Propionate (Fluticasone Propionate) 50 Mcg/Actuation [place].susp, NA DAILY 10/18/17 Enalapril Maleate (ENALAPRIL MALEATE) 10 Mg Tablet, 10 MG PO QDAY 10/18/17 Naproxen Sodium (ALEVE) 220 Mg Capsule, 220 MG PO PRN, CAPSULE 08/17/17 Tamsulosin Hcl (TAMSULOSIN HCL) 0.4 Mg Cap.er.24h, 2 TAB PO AB, CAP 08/06/17 Aspirin (ALVERTO ADVANCED) 500 Mg Tablet, 325 MG PO QDAY 08/06/17 Verapamil Hcl (VERAPAMIL ER) 240 Mg Cap24h.pel, 240 MG PO QDAY 08/06/17 Past Medical/Surgical History Hypertension, hyperlipidemia, sleep apnea, possible arrhythmias undergoing current workup. Cerebrovascular accident 2. 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 Cholecystectomy. Orthopedic surgeries on the right wrist and left knee. Reviewed Nurses Notes: Yes Hx Smoking: No Hx Alcohol Use: Yes (2 x week) Constitutional Vital Sign - Last 24 Hours 04/11/18 04/11/18 04/11/18 04/11/18 03:29 03:35 03:37 03:44 Temp 97.4 Pulse ??? 86 84 Resp 14 B/P (MAP) 160/84 160/84 (109) Pulse Ox 95 96 O2 Delivery Room Air 04/11/18 04/11/18 04/11/18 04/11/18 03:59 04:00 04:14 04:29 Pulse 75 83 85 B/P (MAP) 162/91 (114) Pulse Ox 96 93 94 04/11/18 04/11/18 04/11/18 04/11/18 04:30 04:44 04:59 05:04 Pulse ??? 73 76 B/P (MAP) ???/??? (1665) Pulse Ox 96 97 04/11/18 04/11/18 04/11/18 05:19 05:30 05:34 Pulse 73 82 B/P (MAP) 153/82 (105) Pulse Ox 94 94 Physical Exam General Appearance: The patient is alert. No acute distress. Eyes: Pupils are equal, round. No pallor, injection or icterus. ENT: Mucous membranes are moist. Normal oral mucosa. Posterior oropharynx is normal. Respiratory: Lungs are clear to auscultation. Cardiovascular: Regular rate and rhythm. No murmurs, gallops or rubs. Normal capillary refill. Trace edema in the lower extremities bilaterally. Gastrointestinal: Abdomen is soft, tender in the right lower abdomen. Guarding, but no rebound. Has some pain with palpation of the right lower back as well. Nondistended. No masses or organomegaly. Normal active bowel sounds. No costovertebral angle tenderness with percussion. Neurological: Alert and oriented x3. No focal neurologic deficits Musculoskeletal: Extremities are nontender. No tenderness in the musculoskeletal area of the right hip, inguinal area, buttock, thigh. No tenderness in palpation of the thoracic and lumbar spine. DIFFERENTIAL DIAGNOSIS: After history and physical exam, differential diagnosis was considered for abdominal pain including but not limited to appendicitis, cholecystitis, gastritis and urinary tract infection. Medical Decision Making Data Points Result Diagram: 04/11/18 0342 04/11/18 0342 Laboratory Hematology Test 04/11/18 03:35 04/11/18 03:42 Urine Color Yellow Urine Clarity Clear Urine pH 5.0 pH (4.8-9.5) Urine Specific [place] 1.019 Urine Protein Negative mg/dL (NEGATIVE) Urine Glucose (UA) Negative mg/dL (NEGATIVE) Urine Ketones Negative mg/dL (NEGATIVE) Urine Blood Negative (NEGATIVE) Urine Nitrite Negative (NEGATIVE) Urine Bilirubin Negative (NEGATIVE) Urine Urobilinogen Negative mg/dL (0.2-1.9) Urine Leukocyte Esterase Negative (NEGATIVE) Urine RBC 1 /HPF (0-2/HPF) Urine WBC <1 /HPF (0-5/HPF) Urine Squamous Epithelial Cells None /LPF (</=FEW) Urine Bacteria Negative /HPF (NONE-FEW) Urine Hyaline Casts Few /LPF (NONE-FEW) Urine Mucus Few /HPF (NONE-FEW) Red Blood Count 4.66 M/uL (4.00-5.60) Mean Corpuscular Volume 88.2 fL (80.0-96.0) Mean Corpuscular Hemoglobin 30.8 pg (26.0-33.0) Mean Corpuscular Hemoglobin Concent 35.0 g/dL (32.0-36.0) Red Cell Distribution Width 13.8 % (11.5-14.5) Mean Platelet Volume 8.8 fL (7.2-11.1) Neutrophils (%) (Auto) 56.8 % (39.4-72.5) Lymphocytes (%) (Auto) 29.7 % (17.6-49.6) Monocytes (%) (Auto) 9.4 % (4.1-12.4) Eosinophils (%) (Auto) 3.3 % (0.4-6.7) Basophils (%) (Auto) 0.8 % (0.3-1.4) Nucleated RBC Relative Count (auto) 0.1 /100WBC Neutrophils # (Auto) 3.0 K/uL (2.0-7.4) Lymphocytes # (Auto) 1.6 K/uL (1.3-3.6) Monocytes # (Auto) 0.5 K/uL (0.3-1.0) Eosinophils # (Auto) 0.2 K/uL (0.0-0.5) Basophils # (Auto) 0.0 K/uL (0.0-0.1) Nucleated RBC Absolute Count (auto) 0.00 K/uL Erythrocyte Sedimentation Rate 13 mm/HOUR (0-20) Sodium Level 138 mmol/L (137-145) Potassium Level 4.3 mmol/L (3.5-5.0) Chloride Level 105 mmol/L (98-107) Carbon Dioxide Level 25 mmol/L (22-30) Blood Urea Nitrogen 21 mg/dl (9-21) Creatinine 1.30 mg/dl (0.66-1.25) Glomerular Filtration Rate Calc 53.7 Random Glucose 107 mg/dl (75-110) Lactate 0.7 mmol/L (0.7-2.1) Calcium Level 9.4 mg/dl (8.4-10.2) Total Bilirubin 0.3 mg/dl (0.2-1.3) Aspartate Amino Transf (AST/SGOT) 25 U/L (0-35) Alanine Aminotransferase (ALT/SGPT) 23 U/L (0-56) Alkaline Phosphatase 58 U/L (0-126) C-Reactive Protein 0.7 mg/dl (<1.0) Total Protein 6.7 g/dl (6.3-8.2) Albumin 3.9 g/dl (3.5-5.0) Amylase Level 84 U/L (0-110) Lipase 404 U/L (23-300) Chemistry Test 04/11/18 03:35 04/11/18 03:42 Urine Color Yellow Urine Clarity Clear Urine pH 5.0 pH (4.8-9.5) Urine Specific [place] 1.019 Urine Protein Negative mg/dL (NEGATIVE) Urine Glucose (UA) Negative mg/dL (NEGATIVE) Urine Ketones Negative mg/dL (NEGATIVE) Urine Blood Negative (NEGATIVE) Urine Nitrite Negative (NEGATIVE) Urine Bilirubin Negative (NEGATIVE) Urine Urobilinogen Negative mg/dL (0.2-1.9) Urine Leukocyte Esterase Negative (NEGATIVE) Urine RBC 1 /HPF (0-2/HPF) Urine WBC <1 /HPF (0-5/HPF) Urine Squamous Epithelial Cells None /LPF (</=FEW) Urine Bacteria Negative /HPF (NONE-FEW) Urine Hyaline Casts Few /LPF (NONE-FEW) Urine Mucus Few /HPF (NONE-FEW) White Blood Count 5.4 k/uL (4.5-11.0) Red Blood Count 4.66 M/uL (4.00-5.60) Hemoglobin 14.4 g/dL (14.0-18.0) Hematocrit 41.0 % (42.0-52.0) Mean Corpuscular Volume 88.2 fL (80.0-96.0) Mean Corpuscular Hemoglobin 30.8 pg (26.0-33.0) Mean Corpuscular Hemoglobin Concent 35.0 g/dL (32.0-36.0) Red Cell Distribution Width 13.8 % (11.5-14.5) Platelet Count 174 K/uL (150-450) Mean Platelet Volume 8.8 fL (7.2-11.1) Neutrophils (%) (Auto) 56.8 % (39.4-72.5) Lymphocytes (%) (Auto) 29.7 % (17.6-49.6) Monocytes (%) (Auto) 9.4 % (4.1-12.4) Eosinophils (%) (Auto) 3.3 % (0.4-6.7) Basophils (%) (Auto) 0.8 % (0.3-1.4) Nucleated RBC Relative Count (auto) 0.1 /100WBC Neutrophils # (Auto) 3.0 K/uL (2.0-7.4) Lymphocytes # (Auto) 1.6 K/uL (1.3-3.6) Monocytes # (Auto) 0.5 K/uL (0.3-1.0) Eosinophils # (Auto) 0.2 K/uL (0.0-0.5) Basophils # (Auto) 0.0 K/uL (0.0-0.1) Nucleated RBC Absolute Count (auto) 0.00 K/uL Erythrocyte Sedimentation Rate 13 mm/HOUR (0-20) Glomerular Filtration Rate Calc 53.7 Lactate 0.7 mmol/L (0.7-2.1) Calcium Level 9.4 mg/dl (8.4-10.2) Total Bilirubin 0.3 mg/dl (0.2-1.3) Aspartate Amino Transf (AST/SGOT) 25 U/L (0-35) Alanine Aminotransferase (ALT/SGPT) 23 U/L (0-56) Alkaline Phosphatase 58 U/L (0-126) C-Reactive Protein 0.7 mg/dl (<1.0) Total Protein 6.7 g/dl (6.3-8.2) Albumin 3.9 g/dl (3.5-5.0) Amylase Level 84 U/L (0-110) Lipase 404 U/L (23-300) Urinalysis Test 04/11/18 03:35 Urine Color Yellow Urine Clarity Clear Urine pH 5.0 pH (4.8-9.5) Urine Specific [place] 1.019 Urine Protein Negative mg/dL (NEGATIVE) Urine Glucose (UA) Negative mg/dL (NEGATIVE) Urine Ketones Negative mg/dL (NEGATIVE) Urine Blood Negative (NEGATIVE) Urine Nitrite Negative (NEGATIVE) Urine Bilirubin Negative (NEGATIVE) Urine Urobilinogen Negative mg/dL (0.2-1.9) Urine Leukocyte Esterase Negative (NEGATIVE) Urine RBC 1 /HPF (0-2/HPF) Urine WBC <1 /HPF (0-5/HPF) Urine Squamous Epithelial Cells None /LPF (</=FEW) Urine Bacteria Negative /HPF (NONE-FEW) Urine Hyaline Casts Few /LPF (NONE-FEW) Urine Mucus Few /HPF (NONE-FEW) EKG/Imaging Imaging ABDOMEN/PELVIS WITH CONTRAST Additional pertinent History: Right abdominal pain x2 weeks TECHNIQUE: Spiral scan was through the abdomen and pelvis during injection of nonionic iodinated intravenous contrast. Contrast: 75 cc mL of IV Isovue-370. One of the following dose optimization techniques was utilized in the performance of this exam: Automated exposure control; adjustment of the mA and/ or kV according to the patient's size; or use of an iterative reconstruction technique. Specific details can be referenced in the facility's radiology CT exam operational policy. COMPARISON STUDIES: March 30, 2018 FINDINGS: Liver / biliary: There are several hypoattenuated lesions in the left lobe of the liver and in inferior aspect of the right lobe of liver unchanged when compared to the previous study with features compatible small cysts Pancreas: negative Spleen: negative Adrenal glands: negative Kidneys / retroperitoneum: Bilateral renal cysts. Partial left lower pole renal nephrectomy. Pelvic structures: Mild bladder wall thickening. No focal mass. Bladder diverticulum noted in the left lower bladder measuring approximately 3 cm.. Bowel / peritoneum / mesenteries: Diverticulosis without evidence of diverticulitis appendix normal with no evidence of appendicitis. No bowel obstruction. Mild wall thickening of the distal esophagus similar to the previous examinations. Stomach, duodenum and small bowel unremarkable. Vessels: Atherosclerotic disease of a mild degree within a nonaneurysmal aorta. Musculoskeletal / Body wall: negative Lymph node assessment: negative Lower chest: negative IMPRESSION: Negative CT scan of the abdomen/pelvis for acute pathology. No interval change when compared to the previous study. Report Dictated By: Rolando Dickey MD at 04/11/2018 5:07 AM ED Course/Re-evaluation Clinical Indication for ER IV: Hydration, IV Access ED Course Labs are unremarkable. CT scan also unremarkable. Re-evaluated the patient and discussed the labs and CT results. On re-evaluation , re-examined the patient. Has pain, but seems to present with light touch as well. Did not evaluate the skin on prior exam. Lifting the gown to look at the skin shows me a rash that appears to be a shingles rash, later stage with redish skin base, and some scabs. These are all around from the abdomen to the back and do not cross the midline. The pain is in the same distribution. Discussed shingles with the patient. He has had the shingles vaccine and discussed that the vaccine decreases the chance of getting the shingles, but does not absolutely prevent it. Gave Prednisone 60mg here and a prescription for 4 more days. Gave Valacyclovir 1000mg here and a prescription for more to take TID for 7 days. Will use Lortab for pain. Will start Gabapentin as well for nerve pain. Decision to Disposition Date: Apr 11, 2018 Decision to Disposition Time: 05:51 Depart Departure Latest Vital Signs Vital Signs Date Time Temp Pulse Resp B/P (MAP) Pulse Ox O2 Delivery O2 Flow Rate FiO2 04/11/18 05:34 82 94 04/11/18 05:30 153/82 (105) 04/11/18 03:35 97.4 14 Room Air Impression: Primary Impression: Shingles Condition: Improved Disposition: HOME OR SELF-CARE Referrals: POMERING,MAYELA M [facility] (PCP) New Scripts Gabapentin (GABAPENTIN) 300 Mg Capsule 300 MG PO TID, #90 CAPSULE 0 Refills Prov: DIOMEDES JOSEPH MD 04/11/18 Valacyclovir Hcl (VALACYCLOVIR) 1,000 Mg Tablet 1000 MG PO TID, #21 TAB 0 Refills Prov: DIOMEDES JOSEPH MD 04/11/18 Prednisone (PREDNISONE) 20 Mg Tablet 60 MG PO QDAY, #12 TAB 0 Refills Prov: DIOMEDES JOSEPH MD 04/11/18 Hydrocodone Bit/Acetaminophen (HYDROCODON-ACETAMINOPHEN 5-325) 1 Each Tablet 1 EACH PO Q4H Y for PAIN, #20 TAB 0 Refills Prov: DIOMEDES JOSEPH MD 04/11/18 Patient Instructions: Shingles (ED) Additional Instructions: You have an outbreak of herpes zoster virus, also known as the shingles. This causes nerve pain and a rash along the nerve where the virus has reactivated. This is the chicken pox virus from when you were a child. Take an anti-viral medication called Valacyclovir 1000mg three times a day for 7 days. Take the steroid Prednisone 20mg tablets, 3 tablets once a day for 4 days. You can take Lortab 5/325, one every 4 hours as needed for severe pain. You can also use a pain medicine for nerve pain called Gabapentin. Take Gabapentin 300mg tablets. Start by taking a tablet at bedtime for 3 days, then increase to twice a day for 3 days, then increase to 3 times a day. Follow-up with your regular doctor for re-evaluation. Problem Qualifiers Primary Impression: Shingles Herpes zoster complications: without complications Qualified Codes: B02.9 - Zoster without complications DIOMEDES JOSEPH MD Apr 11, 2018 03:47
[2018-04-11] MEDS ORDERED: NS(*) 0.9% 1000 ML BAG 1,000 ML IV ONE (04:04)
[2018-04-11 04:15] LABS: PLATELET COUNT, AUTOMATED 174 K/uL (150-450)
[2018-04-11] MEDS ORDERED: IOPAMIDOL 76% 100 ML INFUS BTL 100 ML ONE (05:02)
--- NOTE | 2018-04-11 05:23 | RADIOLOGY IMAGING REPORT ---
FACILITY: [facility] PATIENT NAME: Willie Marquez : 1940 MR: [id number] V: [id number] EXAM DATE: ORDERING PHYSICIAN: DIOMEDES JOSEPH TECHNOLOGIST: Location: [facility] [place] Patient: Willie Marquez : 1940 Visit/Account:[id number] Date of Sevice: 04/11/2018 ABDOMEN/PELVIS WITH CONTRAST Additional pertinent History: Right abdominal pain x2 weeks TECHNIQUE: Spiral scan was through the abdomen and pelvis during injection of nonionic iodinated in travenous contrast. Contrast: 75 cc mL of IV Isovue-370. One of the following dose optimization techniques was utilized in the performance of this exam: Autom ated exposure control; adjustment of the mA and/or kV according to the patient's size; or use of an i terative reconstruction technique. Specific details can be referenced in the facility's radiology C T exam operational policy. COMPARISON STUDIES: March 30, 2018 FINDINGS: Liver / biliary: There are several hypoattenuated lesions in the left lobe of the liver and in inferi or aspect of the right lobe of liver unchanged when compared to the previous study with features comp atible small cysts Pancreas: negative Spleen: negative Adrenal glands: negative Kidneys / retroperitoneum: Bilateral renal cysts. Partial left lower pole renal nephrectomy. Pelvic structures: Mild bladder wall thickening. No focal mass. Bladder diverticulum noted in the left lower bladder measuring approximately 3 cm.. Bowel / peritoneum / mesenteries: Diverticulosis without evidence of diverticulitis appendix normal w ith no evidence of appendicitis. No bowel obstruction. Mild wall thickening of the distal esophagus s imilar to the previous examinations. Stomach, duodenum and small bowel unremarkable. Vessels: Atherosclerotic disease of a mild degree within a nonaneurysmal aorta. Musculoskeletal / Body wall: negative Lymph node assessment: negative Lower chest: negative IMPRESSION: Negative CT scan of the abdomen/pelvis for acute pathology. No interval change when compared to the p revious study. Report Dictated By: Rolando Dickey MD at 04/11/2018 5:07 AM Report E-Signed By: Rolando Dickey MD at 04/11/2018 5:19 AM WSN:[id number]
[2018-04-11 05:30] VITALS: BP 153/82
[2018-04-11] MEDS ORDERED: VALA100059 PO (05:54)
[2018-04-11] MEDS ORDERED: PRED20TA6 PO (05:54)
[2018-04-11] MEDS ORDERED: GABA-549 PO (05:54)
[2018-04-11] MEDS ORDERED: LOR5/325 PO (05:54)
[2018-04-11] MEDS ORDERED: valACYclovir HCL 500 MG TAB PO ONE (06:00)
[2018-04-11] MEDS ORDERED: predniSONE 20 MG TAB PO ONE (06:00)
[2018-04-11] MEDS ORDERED: ACET/HYDROC 5/325MG TH ER ONLY 2 TAB/BOTTLE PO ONE (06:00)
== END 2018-04-11 06:09 | disposition home or self-care (01) ==
LOC: ER 03:37
DX: B02.9 Zoster without complications (principal)
CPT/HCPCS: 74177; 81001; 82150; 83605; 83690; 85025; 85651; 86140; 96360; 96361; 99284; J7030; Q9967; 82040; 82247; 82310; 82374; 82435; 82565; 82947; 84075; 84132; 84155; 84295; 84450; 84460; 84520

== ENCOUNTER → 2018-06-14 | Outpatient (CLI) | payer OTHER ==
[~2018-06-14] MED LIST changes: +APIX5TAB PO; +GABA-549 PO; +LOR5/325 PO; +PRED20TA6 PO; +VALA100059 PO
[2018-06-14 11:23] LABS: PLATELET COUNT, AUTOMATED 213 K/uL (150-450)
== END ==
LOC: LAB 11:00
PROVIDERS: ATTEND Radiology Radiation Oncology
DX: C61 Malignant neoplasm of prostate (principal)
CPT/HCPCS: 36415; 82040; 82247; 82310; 82374; 82435; 82565; 82947; 84075; 84132; 84153; 84155; 84295; 84450; 84460; 84520; 85025

== ENCOUNTER 2018-06-21 10:40 | Outpatient (RCR) | payer OTHER ==
[~2018-06-21 10:40] MED LIST changes: -HYDR-4309 PO; +HYDR-653 PO
== END 2018-07-11 14:20 | disposition home or self-care (01) ==
LOC: RAON 10:40
PROVIDERS: ATTEND Radiology Radiation Oncology
DX: C61 Malignant neoplasm of prostate (principal)
CPT/HCPCS: 99212

== ENCOUNTER 2018-07-14 10:35 | Emergency (ER) | payer OTHER ==
[~2018-07-14 10:35] MED LIST changes: -ASPI81TA94 PO
[2018-07-14] MEDS ORDERED: ASPI81TA94 PO (10:51)
--- NOTE | 2018-07-14 11:04 | ER Report ---
History and Physical Time Seen By MD: 11:04 Hx. of Stated Complaint: [facility]iz[facility] on Wednesday. [facility] Got [facility] today and told him to come to ER to set up tests. Has been blacking out and getting dizzy also recently and is being followed by [facility] HPI/ROS CHIEF COMPLAINT: Possible seizure HISTORY OF PRESENT ILLNESS: This is a 78-year-old male who presents to the emergency department with his significant other for a possible seizure that happened 2 days ago. The patient's states that since August he's had blackout episodes, dizziness, lightheadedness, and headaches on the left side of his hea d, [facility], has had a CT of the brain as well as a CTA. Patient states that according to his recollection those turned out okay. Patient states Wednesday he remembers getting up out of bed, sitting down watching the news, and then his significant other states that he was sitting there in the chair, she tried to have a conversation with him he didn't respond, and then aziza de a smacking sound with his mouth and jaw, she didn't seem too concerned and went to school, when she returned home at 3:00 she asked him about it and he doesn't recall the episode. Patient states the last thing he remembers is when he woke up around 1 AM. Apparently he went back to bed and slept. [facility], they told him to come straight to the ER today. Patient denies recent fevers or chills. No nausea or vomiting. No chest pain or shortness of breath. The patient also states that he had some pain in his right calf here recently as well as in the posterior thigh, states it's not a muscle cramp "its deeper". REVIEW OF SYSTEMS: Constitutional: No fever, no chills. Eyes: No discharge. ENT: No sore throat. Cardiovascular: No chest pain, no palpitations. Respiratory: No cough, no shortness of breath. Gastrointestinal: No abdominal pain, no vomiting. Genitourinary: No hematuria. Musculoskeletal: No back pain. Skin: No rashes. Neurological: As above. Allergies: Coded Allergies: latex (Verified Allergy, Mild, 07/14/18) atorvastatin (Verified Adverse Reaction, Intermediate, 07/14/18) metoprolol (Verified Adverse Reaction, Intermediate, 07/14/18) simvastatin (Verified Adverse Reaction, Intermediate, 07/14/18) Home Meds Reported Medications Aspirin (ASPIRIN) 81 Mg Tab.chew, 81 MG PO QDAY, TAB.CHEW 07/14/18 Apixaban (ELIQUIS) 5 Mg Tablet, 5 MG PO BID 04/11/18 Cholecalciferol (Vitamin D3) (VITAMIN D3) 1,000 Unit Tablet, 1000 UNIT PO DAILY, TAB 10/18/17 Alendronate Sodium (FOSAMAX) 70 Mg Tablet, 70 MG PO QWK, TAB 10/18/17 Sennosides/Docusate Sodium (STOOL SOFTENER TABLET) 1 Each Tablet, 1 EACH PO PRN PRN for CONSTIPATION 10/18/17 Magnesium Hydroxide (MILK OF MAGNESIA) 400 Mg/5 Ml Oral.susp, 400 MG PO PRN PRN for CONSTIPATION, BOTTLE 10/18/17 Latanoprost (LATANOPROST) 2.5 Ml Drops, OP DAILY 10/18/17 Fluticasone Propionate (Fluticasone Propionate) 50 Mcg/Actuation [place].susp, NA DAILY 10/18/17 Enalapril Maleate (ENALAPRIL MALEATE) 10 Mg Tablet, 5 MG PO QDAY 10/18/17 Tamsulosin Hcl (TAMSULOSIN HCL) 0.4 Mg Cap.er.24h, 2 TAB PO AB, CAP 08/06/17 Verapamil Hcl (VERAPAMIL ER) 240 Mg Cap24h.pel, 240 MG PO QDAY 08/06/17 Discontinued Reported Medications Leuprolide Acetate (LUPRON DEPOT) 30 Mg/Kit Kit, 30 MG IM ONLY, KIT 10/18/17 Naproxen Sodium (ALEVE) 220 Mg Capsule, 220 MG PO PRN, CAPSULE 08/17/17 Aspirin (ALVERTO ADVANCED) 500 Mg Tablet, 325 MG PO QDAY 08/06/17 Discontinued Scripts Gabapentin (GABAPENTIN) 300 Mg Capsule, 300 MG PO TID, #90 CAPSULE 0 Refills Prov:DIOMEDES JOSEPH MD 04/11/18 Valacyclovir Hcl (VALACYCLOVIR) 1,000 Mg Tablet, 1000 MG PO TID, #21 TAB 0 Refills Prov:DIOMEDES JOSEPH MD 04/11/18 Prednisone (PREDNISONE) 20 Mg Tablet, 60 MG PO QDAY, #12 TAB 0 Refills Prov:DIOMEDES JOSEPH MD 04/11/18 Hydrocodone Bit/Acetaminophen (HYDROCODON-ACETAMINOPHEN 5-325) 1 Each Tablet, 1 EACH PO Q4H PRN for PAIN, #20 TAB 0 Refills Prov:DIOMEDES JOSEPH MD 04/11/18 Ondansetron (ZOFRAN ODT) 4 Mg Tab.rapdis, 4 MG PO every 6 hours PRN for NAUSEA/VOMITING, #10 TAB TAKE 1 TABLET BY MOUTH EVERY 12 HOURS Prov:RAKAN WISE DO 03/30/18 Tramadol Hcl (TRAMADOL HCL) 50 Mg Tablet, 1 TAB PO Q6H PRN for PAIN, #12 MG TAKE ONE TO TWO TABLETS BY MOUTH EVERY FOUR TO SIX HOURS NEEDED Prov:RAKAN WISE DO 03/30/18 Hydrocodone Bit/Acetaminophen (NORCO 5-325 TABLET) 1 Each Tablet, 1 EACH PO Q4H for PAIN, #14 TAB Prov:SHASHI HDZ MD 01/02/18 Cyclobenzaprine Hcl (CYCLOBENZAPRINE HCL) 10 Mg Tablet, 10 MG PO Q8H PRN for MUSCLE SPASMS, #20 TAB 0 Refills Prov:SHASHI HDZ MD 01/02/18 Past Medical/Surgical History The patient has a past medical and surgical history of CVA 2, myocardial infarction, hypertension, sleep apnea, enlarged prostate, prefracture, collarbone fracture, ankle and wrist fractures, wears glasses, hard of hearing, prostate cancer, cholecystectomy, 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 Reviewed Nurses Notes: Yes Hx Smoking: No Hx Alcohol Use: Yes (2 x week) Constitutional Vital Sign - Last 24 Hours 07/14/18 07/14/18 07/14/18 07/14/18 10:39 10:45 11:00 11:15 Temp 97.1 Pulse 99 86 89 81 Resp 16 12 24 16 B/P (MAP) 157/87 141/85 (103) Pulse Ox 97 96 95 92 O2 Delivery Room Air 07/14/18 07/14/18 07/14/18 07/14/18 11:30 11:45 11:49 13:30 Pulse 83 81 80 Resp 11 18 B/P (MAP) 134/96 (109) 154/84 (107) Pulse Ox 91 94 96 07/14/18 07/14/18 07/14/18 13:45 14:00 14:15 Pulse 77 76 79 B/P (MAP) 140/83 (102) Pulse Ox 92 95 93 Physical Exam General Appearance: The patient is alert, has no immediate need for airway protection and no signs of toxicity. Eyes: Pupils equal and round no pallor or injection. EOMs intact. No nystagmus. ENT, Mouth: Mucous membranes are moist. Respiratory: There are no retractions, lungs are clear to auscultation. Cardiovascular: Regular rate and rhythm, no murmurs, clicks or rubs. Gastrointestinal: Abdomen is soft and non tender, no masses, bowel sounds normal. Neurological: Alert and oriented 4. Moving all extremities. Following all commands. No focal neuro deficits. Sequential rapid movements intact of the extremities. No pronator drift. No facial droop or tongue deviation. Sensation intact in the upper and lower extremities. Able to hold the lower extremities off the gurney for at least 5 seconds. Skin: Warm and dry, no rashes. Musculoskeletal: Neck is supple non tender. Extremities are nontender, nonswollen and have full range of motion. DIFFERENTIAL DIAGNOSIS: After history and physical exam differential diagnosis was considered for syncope including but not limited to vasovagal syncope, arrhythmia, dehydration, and blood loss.headache including but not limited to subarachnoid hemorrhage, migraine headache, tension headache and infectious causes such as meningitis, pharyngitis and sinusitis. Medical Decision Making Data Points Result Diagram: 07/14/18 1136 Laboratory Hematology Test 07/14/18 11:36 07/14/18 13:28 Red Blood Count 4.72 M/uL (4.00-5.60) Mean Corpuscular Volume 90.7 fL (80.0-96.0) Mean Corpuscular Hemoglobin 30.6 pg (26.0-33.0) Mean Corpuscular Hemoglobin Concent 33.8 g/dL (32.0-36.0) Red Cell Distribution Width 13.8 % (11.5-14.5) Mean Platelet Volume 8.2 fL (7.2-11.1) Neutrophils (%) (Auto) 62.4 % (39.4-72.5) Lymphocytes (%) (Auto) 26.9 % (17.6-49.6) Monocytes (%) (Auto) 7.9 % (4.1-12.4) Eosinophils (%) (Auto) 1.6 % (0.4-6.7) Basophils (%) (Auto) 1.2 % (0.3-1.4) Nucleated RBC Relative Count (auto) 0.0 /100WBC Neutrophils # (Auto) 3.7 K/uL (2.0-7.4) Lymphocytes # (Auto) 1.6 K/uL (1.3-3.6) Monocytes # (Auto) 0.5 K/uL (0.3-1.0) Eosinophils # (Auto) 0.1 K/uL (0.0-0.5) Basophils # (Auto) 0.1 K/uL (0.0-0.1) Nucleated RBC Absolute Count (auto) 0.00 K/uL Troponin I < 0.012 ng/ml Urine Color Yellow Urine Clarity Clear Urine pH 6.0 pH (4.8-9.5) Urine Specific [place] 1.018 Urine Protein Negative mg/dL (NEGATIVE) Urine Glucose (UA) Negative mg/dL (NEGATIVE) Urine Ketones Negative mg/dL (NEGATIVE) Urine Blood Negative (NEGATIVE) Urine Nitrite Negative (NEGATIVE) Urine Bilirubin Negative (NEGATIVE) Urine Urobilinogen Negative mg/dL (0.2-1.9) Urine Leukocyte Esterase Negative (NEGATIVE) Urine RBC None /HPF (0-2/HPF) Urine WBC <1 /HPF (0-5/HPF) Urine Squamous Epithelial Cells Few /LPF (</=FEW) Urine Bacteria Negative /HPF (NONE-FEW) Urine Mucus Few /HPF (NONE-FEW) Chemistry Test 07/14/18 11:36 07/14/18 13:28 White Blood Count 5.9 k/uL (4.5-11.0) Red Blood Count 4.72 M/uL (4.00-5.60) Hemoglobin 14.4 g/dL (14.0-18.0) Hematocrit 42.8 % (42.0-52.0) Mean Corpuscular Volume 90.7 fL (80.0-96.0) Mean Corpuscular Hemoglobin 30.6 pg (26.0-33.0) Mean Corpuscular Hemoglobin Concent 33.8 g/dL (32.0-36.0) Red Cell Distribution Width 13.8 % (11.5-14.5) Platelet Count 191 K/uL (150-450) Mean Platelet Volume 8.2 fL (7.2-11.1) Neutrophils (%) (Auto) 62.4 % (39.4-72.5) Lymphocytes (%) (Auto) 26.9 % (17.6-49.6) Monocytes (%) (Auto) 7.9 % (4.1-12.4) Eosinophils (%) (Auto) 1.6 % (0.4-6.7) Basophils (%) (Auto) 1.2 % (0.3-1.4) Nucleated RBC Relative Count (auto) 0.0 /100WBC Neutrophils # (Auto) 3.7 K/uL (2.0-7.4) Lymphocytes # (Auto) 1.6 K/uL (1.3-3.6) Monocytes # (Auto) 0.5 K/uL (0.3-1.0) Eosinophils # (Auto) 0.1 K/uL (0.0-0.5) Basophils # (Auto) 0.1 K/uL (0.0-0.1) Nucleated RBC Absolute Count (auto) 0.00 K/uL Troponin I < 0.012 ng/ml Urine Color Yellow Urine Clarity Clear Urine pH 6.0 pH (4.8-9.5) Urine Specific [place] 1.018 Urine Protein Negative mg/dL (NEGATIVE) Urine Glucose (UA) Negative mg/dL (NEGATIVE) Urine Ketones Negative mg/dL (NEGATIVE) Urine Blood Negative (NEGATIVE) Urine Nitrite Negative (NEGATIVE) Urine Bilirubin Negative (NEGATIVE) Urine Urobilinogen Negative mg/dL (0.2-1.9) Urine Leukocyte Esterase Negative (NEGATIVE) Urine RBC None /HPF (0-2/HPF) Urine WBC <1 /HPF (0-5/HPF) Urine Squamous Epithelial Cells Few /LPF (</=FEW) Urine Bacteria Negative /HPF (NONE-FEW) Urine Mucus Few /HPF (NONE-FEW) Urinalysis Test 07/14/18 13:28 Urine Color Yellow Urine Clarity Clear Urine pH 6.0 pH (4.8-9.5) Urine Specific [place] 1.018 Urine Protein Negative mg/dL (NEGATIVE) Urine Glucose (UA) Negative mg/dL (NEGATIVE) Urine Ketones Negative mg/dL (NEGATIVE) Urine Blood Negative (NEGATIVE) Urine Nitrite Negative (NEGATIVE) Urine Bilirubin Negative (NEGATIVE) Urine Urobilinogen Negative mg/dL (0.2-1.9) Urine Leukocyte Esterase Negative (NEGATIVE) Urine RBC None /HPF (0-2/HPF) Urine WBC <1 /HPF (0-5/HPF) Urine Squamous Epithelial Cells Few /LPF (</=FEW) Urine Bacteria Negative /HPF (NONE-FEW) Urine Mucus Few /HPF (NONE-FEW) EKG/Imaging EKG Interpretation 12 lead EKG: Tired EKG 1123. Rhythm: Normal sinus rhythm, ventricular rate 82 bpm. [place]: normal QRS: normal ST segments: No ST depression or elevation identified. Poor T-wave progression in V3, V4, V5 and V6. Imaging EXAMINATION: MRI brain without IV contrast MRI brain with IV contrast HISTORY: Dizziness, passing out, lightheaded. COMPARISON: CT head and brain MRI from 08/06/2017. TECHNIQUE: Multi-planar, multi-sequence brain MRI was performed before and after IV gadolinium. CONTRAST: 15 mL of IV MultiHance gadolinium. FINDINGS: Brain volume: Normal. Sagittal midline structures: Normal. Ventricles: Normal. Acute ischemic changes: No diffusion restriction present to suggest acute ischemia. Hemorrhage: No acute hemorrhage or hemosiderin staining. Masses/edema: 8 mm T1 hyperintense lesion along the inferior aspect of the right temporal lobe is unchanged. Enhancement: No abnormal intracranial enhancement. Pineda-white: Moderate sized area of encephalomalacia and gliosis in the left posterior inferior cerebellum is unchanged. There is focal volume loss with mild cortical thinning in the right anterior frontal lobe. White matter: Patchy T2/FLAIR hyperintensities in the deep white matter bilaterally. Vessels: Normal. Extra-axial: None. Calvarium/scalp: Negative. Skull base: Negative. Visualized sinuses/orbits: Mild mucosal thickening in the bilateral ethmoid air cells. Small left mastoid effusion. Previous lens surgery bilaterally. Visualized upper neck: Negative. IMPRESSION: 1. No acute infarct or hemorrhage. 2. 8 mm lesion along the inferior aspect of the right temporal lobe is unchanged and could be a benign lipoma or dermoid cyst. No adjacent edema or other intracranial mass lesion. 3. 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 4. Encephalomalacia and gliosis in the right frontal lobe is unchanged and could be related to old trauma or infarct. Report Dictated By: Savana Prescott MD at 07/14/2018 1:04 PM Report E-Signed By: Savana Prescott MD at 07/14/2018 1:13 PM WSN:[email or web address] Location: [facility] [place] Patient: Willie Marquez : 1940 Visit/Account:[id number] Date of Sev: 07/14/2018 2 VIEWS CHEST INDICATION: Dizziness and passing out. COMPARISON: None available FINDINGS: Heart size within normal limits. There is no focal infiltrate or lobar consolidation. There is no pneumothorax or pleural effusion. IMPRESSION: 1. No acute cardiopulmonary process. Report Dictated By: Jose Crandall MD at 07/14/2018 12:39 PM Report E-Signed By: Jose Crandall MD at 07/14/2018 12:39 PM WSN:[email or web address] Location: [facility] [place] Patient: Willie Marquez : 1940 Visit/Account:[id number] Date of Sevice: 07/14/2018 EXAMINATION: VENOUS DOPP LOW RIGHT EXTREMITY COMPARISON: None Available HISTORY: Right leg swelling. FINDINGS: Standard right lower extremity Doppler ultrasound with color flow and spectral analysis is performed. The common femoral, femoral, and popliteal veins are widely patent and compress appropriately. The visualized calf veins and the proximal greater saphenous vein are patent. No popliteal fluid collection. The contralateral common femoral vein is patent. IMPRESSION: No right lower extremity deep venous thrombosis. Report Dictated By: Peyman Quintana MD at 07/14/2018 1:41 PM Report E-Signed By: Peyman Quintana MD at 07/14/2018 1:42 PM WSN:[id number] ED Course/Re-evaluation Clinical Indication for ER IV: Hydration, IV Access ED Course The patient was admitted to room. History and physical were obtained. Differential diagnoses were considered. An IV was started. A 500 mL normal saline bolus was given. An EKG showing normal sinus rhythm. A CBC, CMP and troponin were obtained.CBC unremarkable. CMP unremarkable other than creatinine of 1.5 and GFR 45. Negative troponin. Two-view chest x-ray negative for any acute cardiopulmonary process. MRI with and without contrast of the brain showing no acute changes from previous studies. He does have an area in the right temporal region which apparently has been noted on previous MRIs, I'm wondering if this could be contributory to his symptoms. We did attempt to schedule an EEG for the patient however we were unable to. I also recommended following up with the neurologist. I did tell patient that I would like him to follow-up with his primary care provider as soon as possible, he will be moving back to [place] within the next month, I wanted the [place] to attempt to find a neurologist in was constant and follow through with ordering the EEG. I did recommend that he drink plenty of fluids. Return to the ER for any concerns or worsening symptoms. Patient exposed understanding and was discharged home. Patient had no other episodes while in the emergency department. Decision to Disposition Date: Jul 14, 2018 Decision to Disposition Time: 14:35 Depart Departure Latest Vital Signs Vital Signs Date Time Temp Pulse Resp B/P (MAP) Pulse Ox O2 Delivery O2 Flow Rate FiO2 07/14/18 14:15 79 93 07/14/18 14:00 140/83 (102) 07/14/18 11:45 18 07/14/18 10:39 97.1 Room Air Impression: Primary Impression: Dizziness Additional Impression: Frequent headaches Condition: Improved Disposition: HOME OR SELF-CARE Referrals: MAYELA GARCIA APN (PCP) Patient Instructions: Dizziness (ED), General Headache (ED) Additional Instructions: There were no concerning findings on your brain MRI, Chest X-Ray and ultra sound. I really want you to follow up for an EEG as soon as possible, as well as having the [place] help you find a neurologist to formally evaluate for seizures, headaches and dizziness. Continue taking your medications. Drink plenty of water. Get plenty of rest. Return to the ED for any other concerns or worsening symptoms. Problem Qualifiers MOIZ YANEZ COMMERCIAL LOAN COORDINATOR-BC Jul 14, 2018 11:04
[2018-07-14] MEDS ORDERED: NS(*) 0.9% 1000 ML BAG 1,000 ML IV ONE (11:15)
--- NOTE | 2018-07-14 11:36 | EKG ---
FACILITY: [facility] PATIENT NAME: AVINASH HERNANDEZ : [id number] MR: [id number] V: [id number] EXAM DATE: ORDERING PHYSICIAN: MOIZ YANEZ TECHNOLOGIST: CINDY Lloyd Reason : SEIZURS Blood Pressure : / mmHG Vent. Rate : 082 BPM Atrial Rate : 082 BPM P-R Int : 134 ms QRS Dur : 074 ms QT Int : 362 ms P-R-T Axes : 040 017 017 degrees QTc Int : 422 ms Normal sinus rhythm with sinus arrhythmia Normal ECG When compared with ECG of 02-JAN-2018 08:30, No significant change was found Confirmed by PAT CHAMBERS ([id number]) on 07/14/2018 4:27:34 PM Referred By: Confirmed By:PAT CHAMBERS
[2018-07-14 11:50] LABS: PLATELET COUNT, AUTOMATED 191 K/uL (150-450)
[2018-07-14] MEDS ORDERED: GADOBENATE 529MG/1ML 15ML VIAL IVP ONE (12:20)
--- NOTE | 2018-07-14 12:43 | RADIOLOGY IMAGING REPORT ---
[place] [facility] [place] Willie Marquez : 1940 MR: [id number] V: [id number] EXAM DATE: ORDERING PHYSICIAN: MOIZ YANEZ TECHNOLOGIST: Location: [facility] - [place] Patient: Willie Marquez : 1940 Visit/Account:[id number] Date of Sevice: 07/14/2018 2 VIEWS CHEST INDICATION: Dizziness and passing out. COMPARISON: None available FINDINGS: Heart size within normal limits. There is no focal infiltrate or lobar consolidation. There is no pneumothorax or pleural effusion. IMPRESSION: 1. No acute cardiopulmonary process. Report Dictated By: Jose Crandall MD at 07/14/2018 12:39 PM Report E-Signed By: Jose Crandall MD at 07/14/2018 12:39 PM WSN:[email or web address]
--- NOTE | 2018-07-14 13:17 | RADIOLOGY IMAGING REPORT ---
FACILITY: [facility] - [place] PATIENT NAME: Wlilie Marquez : 1940 MR: [id number] V: [id number] EXAM DATE: ORDERING PHYSICIAN: MOIZ YANEZ TECHNOLOGIST: Location: [facility] Patient: Willie Marquez : 1940 Visit/Account:[id number] Date of Sevice: 07/14/2018 EXAMINATION: MRI brain without IV contrast MRI brain with IV contrast HISTORY: Dizziness, passing out, lightheaded. COMPARISON: CT head and brain MRI from 08/06/2017. TECHNIQUE: Multi-planar, multi-sequence brain MRI was performed before and after IV gadolinium. CONTRAST: 15 mL of IV MultiHance gadolinium. FINDINGS: Brain volume: Normal. Sagittal midline structures: Normal. Ventricles: Normal. Acute ischemic changes: No diffusion restriction present to suggest acute ischemia. Hemorrhage: No acute hemorrhage or hemosiderin staining. Masses/edema: 8 mm T1 hyperintense lesion along the inferior aspect of the right temporal lobe is un changed. Enhancement: No abnormal intracranial enhancement. Pineda-white: Moderate sized area of encephalomalacia and gliosis in the left posterior inferior cerebe llum is unchanged. There is focal volume loss with mild cortical thinning in the right anterior front al lobe. White matter: Patchy T2/FLAIR hyperintensities in the deep white matter bilaterally. Vessels: Normal. Extra-axial: None. Calvarium/scalp: Negative. Skull base: Negative. Visualized sinuses/orbits: Mild mucosal thickening in the bilateral ethmoid air cells. Small left ma stoid effusion. Previous lens surgery bilaterally. Visualized upper neck: Negative. IMPRESSION: 1. No acute infarct or hemorrhage. 2. 8 mm lesion along the inferior aspect of the right temporal lobe is unchanged and could be a benig n lipoma or dermoid cyst. No adjacent edema or other intracranial mass lesion. 3. 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 4. Encephalomalacia and gliosis in the right frontal lobe is unchanged and could be related to old tr auma or infarct. Report Dictated By: Savana Prescott MD at 07/14/2018 1:04 PM Report E-Signed By: Savana Prescott MD at 07/14/2018 1:13 PM WSN:[email or web address]
--- NOTE | 2018-07-14 13:45 | RADIOLOGY IMAGING REPORT ---
FACILITY: [facility] PATIENT NAME: Willie Marquez : 1940 MR: [id number] V: [id number] EXAM DATE: ORDERING PHYSICIAN: MOIZ YANEZ TECHNOLOGIST: Location: [facility] [place] Patient: Willie Marquez : 1940 Visit/Account:[id number] Date of Sevice: 07/14/2018 EXAMINATION: VENOUS DOPP LOW RIGHT EXTREMITY COMPARISON: None Available HISTORY: Right leg swelling. FINDINGS: Standard right lower extremity Doppler ultrasound with color flow and spectral analysis is performed. The common femoral, femoral, and popliteal veins are widely patent and compress appropriately. The v isualized calf veins and the proximal greater saphenous vein are patent. No popliteal fluid collection. The contralateral common femoral vein is patent. IMPRESSION: No right lower extremity deep venous thrombosis. Report Dictated By: Peyman Quintana MD at 07/14/2018 1:41 PM Report E-Signed By: Peyman Quintana MD at 07/14/2018 1:42 PM WSN:[id number]
[2018-07-14 14:00] VITALS: BP 140/83
== END 2018-07-14 14:48 | disposition home or self-care (01) ==
LOC: ER 10:45
DX: R42 Dizziness and giddiness (principal); R51 Headache
CPT/HCPCS: 70553; 71046; 81001; 84484; 85025; 93005; 93971; 96360; 99285; A9577; J7030

== ENCOUNTER → 2018-07-14 | Outpatient (CLI) | payer OTHER ==
[~2018-07-14] MED LIST changes: +ASPI81TA94 PO
== END ==
LOC: LAB 09:11
PROVIDERS: ATTEND Internal Medicine
DX: I48.0 Paroxysmal atrial fibrillation (principal); I73.9 Peripheral vascular disease, unspecified; I10 Essential (primary) hypertension; E78.00 Pure hypercholesterolemia, unspecified
CPT/HCPCS: 36415; 82040; 82247; 82310; 82374; 82435; 82465; 82565; 82947; 83718; 84075; 84132; 84155; 84295; 84450; 84460; 84478; 84520